=== PATIENT | female | born 1980 | race Caucasian/White ===

== ENCOUNTER 2018-07-10 15:09 | Emergency (ER) | payer MEDICAID ==
[~2018-07-10] VITALS: Ht 160 cm; Wt 75.5 kg
[~2018-07-10 15:09] MED LIST: CODE240S2 PO; IBUP-1985 PO; OMEP40CA37 PO
[2018-07-10 15:40] LABS: CLARITY,URINE SLIGHTLY CLOUDY (Clear); COLOR,URINE YELLOW (Yellow); GLUCOSE, URINE NEGATIVE (Neg); KETONES,URINE NEGATIVE (Neg); LEUKOCYTE ESTERASE ,URINE NEGATIVE (Neg); NITRITES, URINE NEGATIVE (Neg); OCCULT BLOOD,URINE MODERATE (Neg); PROTEIN,URINE NEGATIVE (Neg); UROBILINOGEN,URINE 0.2 E.U/dL (0.2-1.0)
[2018-07-10] MEDS ORDERED: normal saline 1000ML IV soln IVB ONE (15:40)
[2018-07-10] MEDS ORDERED: ondansetron/PF 4mg/2ml inj IV ONE (15:40)
[2018-07-10 15:43] LABS: UA COLLECTION TYPE CLN CATCH MIDSTREAM
[2018-07-10 15:46] LABS: BACTERIA,URINE 1+ /HPF (Neg); MUCUS STRANDS MODERATE /LPF (Neg); SQUAMOUS EPITHELIAL CELL,UR MODERATE /LPF (FEW); WBC,URINE 0-4 /HPF (0-4)
[2018-07-10 16:10] LABS: BASOPHILS % (AUTO) 0.4 % (0-1); EOSINOPHILS # (AUTO) 0.2 X10'3 (0-0.9); EOSINOPHILS % (AUTO) 2.1 % (0-6); HEMATOCRIT 43.9 % (35.0-45.0); HEMOGLOBIN 14.7 g/dl (12.0-16.0); LYMPHOCYTES # (AUTO) 2.4 X10'3 (1.1-4.8); LYMPHOCYTES % (AUTO) 26.6 % (21-51); MEAN CORPUSCULAR HEMOGLOBIN 29.8 PG (27.0-31.0); MEAN CORPUSCULAR HGB CONC 33.4 % (33.0-36.5); MEAN CORPUSCULAR VOLUME 89.2 FL (78-98); MEAN PLATELET VOLUME 8.7 FL (7.4-10.4); MONOCYTES # (AUTO) 0.8 X10'3 (0-0.9); NEUTROPHILS # (AUTO) 5.7 X10'3 (1.8-7.7); NEUTROPHILS % (AUTO) 61.9 % (42-75); PLATELET COUNT 273 X10'3 (140-440); RED BLOOD COUNT 4.92 X10'6 (4.20-5.60); RED CELL DISTRIBUTION WIDTH 12.9 % (11.5-14.5); WHITE BLOOD COUNT 9.2 X10'3 (4.5-11.0)
[2018-07-10 16:24] LABS: ALANINE AMINOTRANSFERASE 29 U/L (12-78); ALBUMIN 3.6 G/DL (3.4-5.0); ALBUMIN/GLOBULIN RATIO 0.9 (1.1-1.5); ALKALINE PHOSPHATASE 70 IU/L (46-116); ANION GAP 10 (8-16); ASPARTATE AMINO TRANSFERASE 21 U/L (10-37); BILIRUBIN,TOTAL 0.5 MG/DL (0.1-1.0); BLOOD UREA NITROGEN 11 MG/DL (7-18); BUN/CREATININE RATIO 14.9 (6.6-38.0); CALCIUM 8.5 MG/DL (8.5-10.1); CHLORIDE 103 MMOL/L (99-107); CREATININE 0.74 MG/DL (0.40-0.90); GLUCOSE 81 MG/DL (70-104); LIPASE 172 U/L (73-393); SODIUM 136 MMOL/L (135-145); TOTAL CARBON DIOXIDE 22.7 MMOL/L (24-32); TOTAL PROTEIN 7.4 G/DL (6.4-8.2); eGFR 89 ML/MIN
[2018-07-10 16:30] LABS: URINE HCG NEGATIVE (NEG)
[2018-07-10] MEDS ORDERED: ibuprofen tablet 400 MG TABLET PO ONE (16:35)
[2018-07-10 17:35] VITALS: BP 102/65
== END 2018-07-10 17:39 | disposition home or self-care (01) ==
LOC: ER 15:09
DX: K59.00 Constipation, unspecified (principal); F17.200 Nicotine dependence, unspecified, uncomplicated; F12.10 Cannabis abuse, uncomplicated; Z79.899 Other long term (current) drug therapy; Z88.6 Allergy status to analgesic agent; Z88.2 Allergy status to sulfonamides
CPT/HCPCS: 36415; 74176; 80053; 81001; 81025; 83690; 85025; 96360; 99284; J2405; J7030

== ENCOUNTER 2019-07-06 22:37 | Emergency (ER) | payer OTHER, MEDICAID ==
[~2019-07-06] VITALS: Ht 160 cm; Wt 79.0 kg
[~2019-07-06 22:37] MED LIST changes: +OMEP40CA13 PO; -OMEP40CA37 PO
[2019-07-06] MEDS ORDERED: NO HOME MEDS (23:26)
[2019-07-06 23:56] VITALS: BP 121/69
[2019-07-07] MEDS ORDERED: ketorolac trometh inj. 60 MG/2 ML VIAL IM ONE (00:25)
[2019-07-07] MEDS ORDERED: CYCL-1 PO (00:47)
== END 2019-07-07 00:57 | disposition home or self-care (01) ==
LOC: ER 22:38
DX: S23.3XXA Sprain of ligaments of thoracic spine, initial encounter (principal); F12.90 Cannabis use, unspecified, uncomplicated; Z88.5 Allergy status to narcotic agent; Z88.2 Allergy status to sulfonamides; Z88.1 Allergy status to other antibiotic agents; Z79.899 Other long term (current) drug therapy; V29.9XXA Motorcycle rider (driver) (passenger) injured in unspecified traffic accident, initial encounter; Y93.89 Activity, other specified; Y92.410 Unspecified street and highway as the place of occurrence of the external cause; Y99.8 Other external cause status
CPT/HCPCS: 72070; 96372; 99283; J1885

== ENCOUNTER 2019-07-31 07:08 | Emergency (ER) | payer MEDICAID, OTHER ==
[~2019-07-31] VITALS: Ht 160 cm; Wt 80.0 kg
[~2019-07-31 07:08] MED LIST changes: -CODE240S2 PO; +CYCL-1 PO; -IBUP-1985 PO; +NO HOME MEDS; -OMEP40CA13 PO
[2019-07-31 08:00] LABS: CLARITY,URINE CLEAR (Clear); COLOR,URINE YELLOW (Yellow); GLUCOSE, URINE NEGATIVE (Neg); KETONES,URINE NEGATIVE (Neg); LEUKOCYTE ESTERASE ,URINE NEGATIVE (Neg); NITRITES, URINE NEGATIVE (Neg); OCCULT BLOOD,URINE SMALL (Neg); PROTEIN,URINE NEGATIVE (Neg); URINE HCG NEGATIVE (NEG); UROBILINOGEN,URINE 0.2 E.U/dL (0.2-1.0)
[2019-07-31 08:01] LABS: UA COLLECTION TYPE CLN CATCH MIDSTREAM
[2019-07-31 08:07] LABS: BACTERIA,URINE 1+ /HPF (Neg); CAL OXALATE CRYSTALS 1+ /HPF (NEGATIVE); MUCUS STRANDS NONE SEEN /LPF (Neg); SPERM FEW /HPF; SQUAMOUS EPITHELIAL CELL,UR MODERATE /LPF (FEW); WBC,URINE 0-4 /HPF (0-4)
[2019-07-31] MEDS ORDERED: ketorolac trometh. 30mg/ml inj. IM ONE (08:35)
[2019-07-31] MEDS ORDERED: HYDROcodone/acetaminophen 10/325mg tab PO ONE (08:35)
[2019-07-31 10:05] LABS: BASOPHILS # (AUTO) 0.1 X10'3 (0-0.2); BASOPHILS % (AUTO) 0.7 % (0-1); EOSINOPHILS # (AUTO) 0.2 X10'3 (0-0.9); HEMATOCRIT 43.8 % (35.0-45.0); LYMPHOCYTES # (AUTO) 2.6 X10'3 (1.1-4.8); LYMPHOCYTES % (AUTO) 25.3 % (21-51); MEAN CORPUSCULAR HEMOGLOBIN 30.1 PG (27.0-31.0); MEAN CORPUSCULAR HGB CONC 34.2 g/dL (33.0-36.5); MEAN CORPUSCULAR VOLUME 88.2 FL (78-98); MEAN PLATELET VOLUME 8.8 FL (7.4-10.4); MONOCYTES % (AUTO) 9.2 % (2-12); NEUTROPHILS # (AUTO) 6.5 X10'3 (1.8-7.7); NEUTROPHILS % (AUTO) 62.8 % (42-75); PLATELET COUNT 280 X10'3 (140-440); RED BLOOD COUNT 4.96 X10'6 (4.20-5.60); RED CELL DISTRIBUTION WIDTH 13.4 % (11.5-14.5); WHITE BLOOD COUNT 10.3 X10'3 (4.5-11.0)
[2019-07-31 10:16] VITALS: BP 112/67
[2019-07-31 10:18] LABS: ALANINE AMINOTRANSFERASE 55 U/L (12-78); ALBUMIN 3.9 G/DL (3.4-5.0); ALKALINE PHOSPHATASE 90 IU/L (46-116); ANION GAP 3 (8-16); ASPARTATE AMINO TRANSFERASE 25 U/L (10-37); BILIRUBIN,TOTAL 0.3 MG/DL (0.1-1.0); BLOOD UREA NITROGEN 14 MG/DL (7-18); BUN/CREATININE RATIO 17.1 (6.6-38.0); CALCIUM 9.4 MG/DL (8.5-10.1); CHLORIDE 104 MMOL/L (99-107); CREATININE 0.82 MG/DL (0.40-0.90); GLUCOSE 101 MG/DL (70-104); POTASSIUM 4.5 MMOL/L (3.5-5.1); SODIUM 137 MMOL/L (135-145); TOTAL CARBON DIOXIDE 30.4 MMOL/L (24-32); TOTAL PROTEIN 7.9 G/DL (6.4-8.2); eGFR 78 ML/MIN
[2019-07-31] MEDS ORDERED: IBUP-1984 PO (10:44)
[2019-07-31] MEDS ORDERED: HYDR-4353 PO (10:44)
== END 2019-07-31 10:59 | disposition home or self-care (01) ==
LOC: ER 07:09
DX: R10.9 Unspecified abdominal pain (principal); F15.10 Other stimulant abuse, uncomplicated; R10.2 Pelvic and perineal pain; F12.90 Cannabis use, unspecified, uncomplicated; F17.200 Nicotine dependence, unspecified, uncomplicated; Z88.5 Allergy status to narcotic agent; Z88.1 Allergy status to other antibiotic agents; Z88.8 Allergy status to other drugs, medicaments and biological substances
CPT/HCPCS: 36415; 74176; 80053; 81001; 81025; 85025; 99284; J1885

== ENCOUNTER 2021-04-02 19:26 | Emergency (ER) | payer MEDICAID | END 2021-04-02 20:08 | disposition left against medical advice (07) | LOC: ER 19:26 | DX: U07.1 COVID-19 (principal); Z53.21 Procedure and treatment not carried out due to patient leaving prior to being seen by health care provider ==

== ENCOUNTER 2022-01-01 13:29 | Emergency (ER) | payer MEDICAID | END 2022-01-01 14:58 | disposition left against medical advice (07) | LOC: ER 13:29 | DX: R10.9 Unspecified abdominal pain (principal); Z53.21 Procedure and treatment not carried out due to patient leaving prior to being seen by health care provider ==

== ENCOUNTER 2024-05-15 19:57 | Emergency (ER) | payer MEDICAID, OTHER ==
[~2024-05-15] VITALS: Ht 160 cm; Wt 100.0 kg
[2024-05-15] MEDS ORDERED: DOXY-1 PO (21:18)
[2024-05-15] MEDS ORDERED: MUPI22OI30 TP (21:18)
[2024-05-15] MEDS: DOXYCYCLINE 100MG CAPSULE PO STA (21:51)
[2024-05-15 21:52] VITALS: BP 132/74; PULSE 84; RESP 14; TEMP 98.6; O2SAT 95
== END 2024-05-15 21:54 | disposition home or self-care (01) ==
LOC: ER 19:57
DX: L98.9 Disorder of the skin and subcutaneous tissue, unspecified (principal); B95.8 Unspecified staphylococcus as the cause of diseases classified elsewhere; F12.90 Cannabis use, unspecified, uncomplicated; F15.90 Other stimulant use, unspecified, uncomplicated; Z88.5 Allergy status to narcotic agent; Z88.2 Allergy status to sulfonamides; Z79.2 Long term (current) use of antibiotics; Z79.899 Other long term (current) drug therapy; Z87.440 Personal history of urinary (tract) infections
CPT/HCPCS: 99283

== ENCOUNTER 2025-02-22 15:04 | Emergency (ER) | payer SELFPAY ==
[~2025-02-22] VITALS: Ht 162.6 cm; Wt 89.0 kg
[2025-02-22 15:06] VITALS: BP 126/77; PULSE 88; RESP 18; TEMP 97.5; O2SAT 97
--- NOTE | 2025-02-22 16:08 | Physician Documentation ---
History of Present Illness ~ Chief Complaint: Eye Pain Stated Complaint: EYE PAIN Time Seen by MD: 15:50 Primary Medical Doctor: None HPI [age]-year-old female presents to the ED with a complaint of right eye pain for the last week. She states that she has had increased pain with swelling on the medial aspect of her right eyelid Day of Onset: Feb 22, 2025 Medication Reconciliation Allergies: Coded Allergies: morphine (Verified Allergy, Unknown, rash, 02/22/25) sulfamethoxazole (Verified Allergy, Unknown, rash, 02/22/25) trimethoprim (Verified Allergy, Unknown, rash, 02/22/25) Scheduled Cephalexin*Monohydrate* (Keflex*), 1 CAP PO QID Erythromycin Base Opth. Ointment* (Erythromycin Opth. Ointment*), 1 APPLIC EACHEYE Q4HWA Scheduled PRN Cyclobenzaprine* (Cyclobenzaprine*), 1 TABLET PO Q8H PRN for muscle spasms Miscellaneous Medications Home Med List (No Home Medications), (Reported) Past Medical History Past Medical History: Constipation, UTI Past Surgical History: noncontributory Alcohol Use: None Drug Use: marijuana, methamphetamine Lives with: Family Lives In: Home Occupation: employed Review of Systems All Other Systems at this time: Reviewed and Negative ROS As stated above in the HPI, otherwise all systems are reviewed and negative. Physical Exam Vital Signs: Temperature: 97.5, Source: Temporal, Heart Rate: 88, Respiratory Rate: 18, BP: 126/77, Pulse Oximetry: 97, Weight: 88.950 Oxygen Flow Rate: 0 Physical Exam General: Alert, no apparent distress. HEENT: PERRL, EOMI, no injection, moist mucous membranes. swelling erythema, right medial eye lid. Neurologic: Oriented x4. Psychiatric: Normal mood and affect. Skin: Normal color, warm and dry. No edema, no ecchymosis. Progress Results/Orders Results/Orders Completed Orders - RODRIGO RIVERA NP Erythromycin Ophth Ointment (Ilotycin Op (02/22/25 16:20) Medications Received in ER Medications (Trade) Dose Ordered Sig/Negrita Route PRN Reason Start Time Stop Time Status Last Admin Dose Admin (Ilotycin ophth ointment) 0.25 inch ONCE ONCE EACHEYE 02/22/25 16:20 02/22/25 16:25 DC 02/22/25 16:28 0.25 INCH Vital Signs 02/22/25 15:06 Temp 97.5 Pulse 88 Resp 18 B/P (MAP) 126/77 Pulse Ox 97 O2 Flow Rate 0 Medical Decision Making Findings In empirically with ophthalmic antibiotics. Was no signs of inflamed conjunctiva or sclera. No vision disturbances. At this point I am going to discharge patient to outpatient therapy Eye Diff. Dx: Considerations: Include: [place], Conjuctivits-allergic, Conjuctivitis-bacterial, Conjuctivits-chlamydial, Conjuctivitis-viral, Corneal abrasion, Corneal laceration, Corneal ulceration, Foreign body-conjuctiva, Foreign body-corneal, Foreign body-intraocular, Foreign body-lid, Glaucoma, Globe rupture, Hordeolum, Iritis, Orbital cellulitis, Periobital cellulitis, Retinal artery occulsion, Retinal vein occlusion, Rust ring, Subconjunctival hem, Ultraviolet keratitis, Uveitis, Vitreous hemorrhage, Other Departure Impression: Primary Impression: Sty, external Additional Impression: Swelling of eye Discharge Instructions: Sty Referrals: NO PRIMARY CARE PROVIDER (PCP) Prescriptions Cephalexin*Monohydrate* (Keflex*) 500 Mg Capsule 1 CAP PO QID, #40 CAP Prov: RODRIGO RIVERA CORPORATE COMPLIANCE OFFICER 02/22/25 Erythromycin Base Opth. Ointment* (Erythromycin Opth. Ointment*) 1 Gm Tube 1 APPLIC EACHEYE Q4HWA, #1 EACH Prov: RODRIGO RIVERA CORPORATE COMPLIANCE OFFICER 02/22/25 Education Educated: Patient Educated regarding: diagnosis Signature Scribe Signature: d Attestation: Scribed for Rodrigo Rivera Shipper And Receiving by Rodrigo Mcgrath NP . 02/22/25 16:23 RODRIGO RIVERA NP Feb 22, 2025 16:08
[2025-02-22] MEDS ORDERED: CEPH-585 PO (16:24)
[2025-02-22] MEDS ORDERED: ERYT1OIN6 EACHEYE (16:24)
[2025-02-22] MEDS: erythromycin ophthalmic ointment 1gm tube EACHEYE ONE (16:28)
== END 2025-02-22 16:38 | disposition home or self-care (01) ==
LOC: ER 15:05
DX: H00.011 Hordeolum externum right upper eyelid (principal); F12.90 Cannabis use, unspecified, uncomplicated; F15.90 Other stimulant use, unspecified, uncomplicated; Z88.5 Allergy status to narcotic agent; Z88.2 Allergy status to sulfonamides; Z79.899 Other long term (current) drug therapy
CPT/HCPCS: 99283

== ENCOUNTER 2025-07-06 21:35 | Emergency (ER) | payer MEDICAID ==
[~2025-07-06 21:35] MED LIST changes: +ASPI-1264 PO; -CYCL-1 PO; -NO HOME MEDS
== END 2025-07-06 22:41 | disposition left against medical advice (07) ==
LOC: ER 21:36
DX: R10.9 Unspecified abdominal pain (principal); Z88.8 Allergy status to other drugs, medicaments and biological substances; Z53.21 Procedure and treatment not carried out due to patient leaving prior to being seen by health care provider